=== PATIENT | male | born 1970 | race African-American/Black ===

== ENCOUNTER 2018-02-22 21:45 | Inpatient (IN) | payer OTHER ==
[~2018-02-22] VITALS: Ht 185.4 cm; Wt 62.6 kg
[2018-02-22 20:00] VITALS: BP 180/107
--- NOTE | 2018-02-22 22:30 | NUR ---
MS/ADMISSION INITIAL NOTES: RECEIVED PT. VIA [facility] W/ 2 EMT STAFF. PT. AMBULATED VIA STEADY GAIT TO THE BATHROOM. A/O X 4. RA SAT 94%. NO S/S OF RESPIRATORY OR CHEST PAIN. HAS LEFT EJ G #20 AND RA G #20 PATENT AND INTACT W/ NO S/S OF INFECTION OR INFILTRATION NOTED. W/ D5 1/2 NS @ 125 CC/ HR. CONTINENT OF B/B. CALL LIGHT W/REACH. WILL CONTINUE TO MONITOR.
[2018-02-22] MEDS ORDERED: Z GUARD REMEDY 2 OZ OINT TP PRN (23:30)
[2018-02-22] MEDS ORDERED: DEXTROSE 50%-WATER 50 ML DISP.SYRIN IV PRN (23:30)
[2018-02-22] MEDS ORDERED: INSULIN REGULAR, HUMAN 100 UNIT/ML 3 ML VIAL SQ PRN (23:30)
[2018-02-22] MEDS ORDERED: ACETAMINOPHEN 325 MG TABLET PO PRN (23:30)
[2018-02-22] MEDS ORDERED: ONDANSETRON HCL/PF 4 MG/2 ML VIAL IVP PRN (23:30)
[2018-02-22] MEDS ORDERED: MAGNESIUM HYDROXIDE 30 ML UDC PO PRN (23:30)
[2018-02-22] MEDS ORDERED: ZOLPIDEM TARTRATE 5 MG TABLET PO PRN (23:30)
[2018-02-22] MEDS ORDERED: MAG HYDROX/AL HYDROX/SIMETH 30 ML UDC PO PRN (23:30)
[2018-02-22] MEDS ORDERED: LISI2.5T2 PO (23:39)
[2018-02-22] MEDS ORDERED: LOSA50TA21 PO (23:39)
[2018-02-22] MEDS ORDERED: INSU100V27 SQ (23:45)
[2018-02-23] VITALS: BP 127/82
[2018-02-23] MEDS: IV D5/0.45 NACL 1,000 ML IV PRN ×2 (00:08→07:49)
[2018-02-23] MEDS: HYDROCODONE/APAP 5/325MG 1 EACH TABLET PO PRN ×4 (00:44→14:46)
[2018-02-23 02:39] VITALS: BP 127/82
[2018-02-23 04:00] VITALS: BP 149/94
[2018-02-23 06:08] VITALS: BP 149/94
[2018-02-23 06:56] LABS: BASOPHILS # (AUTO) 0.1 /CMM (0.0-0.2); BASOPHILS % (AUTO) 2.2 % (0.0-2.0); EOSINOPHILS % (AUTO) 0.8 % (0.0-6.0); HEMATOCRIT 32 % (39-51); HEMOGLOBIN 10.9 g/dL (13.5-17.5); LYMPHOCYTES # (AUTO) 0.8 /CMM (0.8-4.8); LYMPHOCYTES % (AUTO) 12.6 % (20.0-44.0); MEAN CORPUSCULAR HEMOGLOBIN 32 PG (26.0-33.0); MEAN CORPUSCULAR HGB CONC 34 g/dl (31.0-36.0); MEAN CORPUSCULAR VOLUME 93 fL (80-96); MONOCYTES # (AUTO) 0.6 /CMM (0.1-1.30); MONOCYTES % (AUTO) 8.7 % (2.0-12.0); NEUTROPHILS # (AUTO) 4.8 /CMM (1.8-8.9); NEUTROPHILS % (AUTO) 75.7 % (43.0-81.0); PLATELET COUNT (AUTO) 208 /CMM (150-450); RDW COEFFICIENT OF VARIATION 11.6 (11.5-15.0); RED BLOOD CELL COUNT(AUTO) 3.41 MIL/uL (4.5-6.0); WHITE BLOOD COUNT (AUTO) 6.4 K/uL (4.3-11.0)
[2018-02-23] MEDS: BLOOD SUGAR DIAGNOSTIC 1 EACH STRIP IN SCH ×2 (07:44→12:15)
[2018-02-23 08:00] VITALS: BP 143/91
[2018-02-23 08:59] LABS: CALCIUM, SERUM 8.6 mg/dL (8.5-10.1); CREATININE 2.2 mg/dL (0.6-1.3); MAGNESIUM 1.9 mg/dL (1.8-2.4)
[2018-02-23] MEDS ORDERED: PANTOPRAZOLE 40 MG VIAL IV SCH (09:00)
[2018-02-23 09:17] LABS: POTASSIUM 4.8 mmol/L (3.5-5.1)
[2018-02-23 10:28] LABS: THYROID STIMULATING HORMONE 1.202 uIU/mL (0.358-3.74)
--- NOTE | 2018-02-23 16:59 | NUR ---
MEDICATED FOR PAIN ORDERED X3 WITH [facility] FOR C/O ABDOMINAL PAIN AND EFFECTIVE. TOLERATED SOFT DIET. VOIDING WELL. AMBULATES WITH STEADY GAIT. L NECK IV AND RFA IV REMOVED. PT LEFT AMHunter AND DR CULVER AWARE.
== END 2018-02-23 16:59 | disposition left against medical advice (07) | DRG 816 ==
LOC: TELE1 21:45 → MEDSG1 02-23 00:40
PROVIDERS: ADMIT Family Medicine; ATTEND Family Medicine
DX: T61.8X1A Toxic effect of other seafood, accidental (unintentional), initial encounter (principal); N17.0 Acute kidney failure with tubular necrosis; K52.1 Toxic gastroenteritis and colitis; I10 Essential (primary) hypertension; E11.9 Type 2 diabetes mellitus without complications; Z79.4 Long term (current) use of insulin; Y92.89 Other specified places as the place of occurrence of the external cause
CPT/HCPCS: 36415; 80048-TC; 80061-TC; 82962-TC; 83735-TC; 84100-TC; 84443-TC; 85025-TC; C9113; J1815; J3490